=== PATIENT | female | born 1940 | race Caucasian/White ===

== ENCOUNTER 2017-05-08 22:05 | Inpatient (IN) | payer OTHER ==
[~2017-05-08] VITALS: Ht 160 cm; Wt 98.7 kg
[~2017-05-08 22:05] MED LIST: ADVAIR 100/501 DISK IH; CELECOXIB200 MG PO; CYANOCOBAL1000 MCG/2 IM; DICLOFENAC POTA50 MG PO; DICLOFENAC SODI50 MG PO; ELAVIL100 MG PO; FEOSOL325 MG PO; FERROUS SULFAT325 MG PO; FIORINAL 50-321 EACH PO; FLEXERIL10 MG PO; FLONASE ALLERG9.9 ML BOTH NARES; GINKGO BILOBA120 MG PO; HYDROCODON-ACE1 EAC7 PO; LIPITOR40 MG PO; LISINOPRIL20 MG PO; LOVENOX40 MG/0.4 SC; MIRALAX17 GM PO; MIRALAX255 GM PO; NORCO 5/3251 TABLET PO; OXYCONTIN10 MG PO; PRILOSEC20 MG PO; STOOL SOFTENER100 M1 PO; SYNTHROID100 MCG PO; TOPROL XL100 MG PO; VITAMIN D2000 UNIT PO; VITAMIN K100 MCG PO; ZESTORETIC 20-1 EAC1 NG; ZESTORETIC 20-1 EAC1 PO; ZETIA10 MG PO
[2017-05-09 06:21] VITALS: BP 143/76
[2017-05-09 10:08] LABS: HEMATOCRIT 29.6 % (36.0-46.0); MCH 28.2 PG (29.0-34.0); MCHC 31.8 G/DL (30.0-36.0); MCV 88.9 FL (83-99); PLATELET COUNT 216 K/uL (156-360); RBC DIS.WIDTH-CV 14.2 % (11.8-14.6); RBC DIS.WIDTH-SD 45.8 % (39-53); RED BLOOD COUNT 3.33 M/uL (3.80-5.20); WHITE BLOOD COUNT 5.9 K/uL (4.1-10.2)
[2017-05-09 10:19] LABS: HEMOGLOBIN 9.4 G/DL (11.9-15.5)
[2017-05-09 11:45] VITALS: BP 129/59
[2017-05-09 13:09] VITALS: BP 147/65
[2017-05-09 16:44] VITALS: BP 141/65
[2017-05-09 19:57] VITALS: BP 119/56
[2017-05-10 00:19] VITALS: BP 119/56
[2017-05-10 04:42] VITALS: BP 125/79
[2017-05-10 07:56] VITALS: BP 120/58
[2017-05-10 07:56] LABS: HEMATOCRIT 29.8 % (36.0-46.0); HEMOGLOBIN 9.4 G/DL (11.9-15.5); MCV 88.4 FL (83-99)
[2017-05-10 08:17] LABS: CHLORIDE 101 MEQ/L (99-109); CREATININE 0.9 MG/DL (0.6-1.3); GFR ESTIMATE (CALCULATED) > 59 mL/min/; GLUCOSE 113 mg/dL (70-99); POTASSIUM 4.3 MEQ/L (3.7-5.4); SODIUM 136 MEQ/L (136-147); UREA NITROGEN (BUN) 16 mg/dL (9-23)
[2017-05-10] MEDS ORDERED: OXYCONTIN10 MG PO (09:18)
[2017-05-10] MEDS ORDERED: LOVENOX40 MG/0.4 SC (09:18)
[2017-05-10] MEDS ORDERED: ENDOCET 5-3251 EACH PO (09:18)
[2017-05-10 16:21] VITALS: BP 159/56
[2017-05-11 00:36] VITALS: BP 164/77
[2017-05-11 07:43] LABS: HEMATOCRIT 28.7 % (36.0-46.0); HEMOGLOBIN 9.3 G/DL (11.9-15.5); MCV 87.2 FL (83-99)
[2017-05-11] MEDS ORDERED: PROTONIX40 MG PO (17:33)
[2017-05-11] MEDS ORDERED: SENNA-S TABLET1 EACH PO (17:34)
[2017-05-11] MEDS ORDERED: NOVOLOG 10100 UNITS/ SC (17:35)
[2017-05-11] MEDS ORDERED: PERCOCET 10/1 TABLET PO (17:36)
[2017-05-11] MEDS ORDERED: PERCOCET 5/31 TABLET PO (17:37)
[2017-05-11] MEDS ORDERED: ZOFRAN4 MG/2 ML IV (17:38)
[2017-05-11] MEDS ORDERED: SALONPAS-HOT1 EACH TP (17:40)
== END 2017-05-11 17:06 | disposition home or self-care (01) | DRG 470 ==
LOC: ENRESERV 22:05 → 2SOUTH 05-09 05:23 → ENRESERV 05-09 08:55 → 2SOUTH 05-09 10:16 → 3EAST 05-09 10:48 → 2SOUTH 05-09 13:24 → 3EAST 05-11 17:06
PROVIDERS: Orthopaedic Surgery
PROC: 0SRD0J9 Replacement of Left Knee Joint with Synthetic Substitute, Cemented, Open Approach (ICD-10-PCS; principal; 2017-05-09)
DX: M17.12 Unilateral primary osteoarthritis, left knee (principal); I10 Essential (primary) hypertension; E11.9 Type 2 diabetes mellitus without complications; E78.00 Pure hypercholesterolemia, unspecified; K21.9 Gastro-esophageal reflux disease without esophagitis; Z90.710 Acquired absence of both cervix and uterus; Z85.828 Personal history of other malignant neoplasm of skin; Z96.651 Presence of right artificial knee joint; Z80.3 Family history of malignant neoplasm of breast
CPT/HCPCS: 71275; 73560; 80048; 82948; 85014; 85018; 85027; 94799; 97530 GO; C1713; J0131; J0330; J0690; J1100; J1170; J1650; J1885; J2250; J2405; J2795; J7030; J7050

== ENCOUNTER 2017-05-11 14:18 | Inpatient (IN) | payer OTHER ==
[~2017-05-11] VITALS: Ht 160 cm; Wt 90.3 kg
[~2017-05-11 14:18] MED LIST changes: +ENDOCET 5-3251 EACH PO
[2017-05-11] MEDS ORDERED: PROTONIX40 MG PO (17:33)
[2017-05-11] MEDS ORDERED: SENNA-S TABLET1 EACH PO (17:34)
[2017-05-11] MEDS ORDERED: NOVOLOG 10100 UNITS/ SC (17:35)
[2017-05-11] MEDS ORDERED: PERCOCET 10/1 TABLET PO (17:36)
[2017-05-11] MEDS ORDERED: PERCOCET 5/31 TABLET PO (17:37)
[2017-05-11] MEDS ORDERED: ZOFRAN4 MG/2 ML IV (17:38)
[2017-05-11] MEDS ORDERED: SALONPAS-HOT1 EACH TP (17:40)
[2017-05-11 17:42] VITALS: BP 114/56
[2017-05-12 00:29] VITALS: BP 117/58
[2017-05-12 06:28] VITALS: BP 128/58
[2017-05-12 08:33] LABS: HEMATOCRIT 27.1 % (36.0-46.0); HEMOGLOBIN 8.7 G/DL (11.9-15.5); MCH 27.9 PG (29.0-34.0); MCHC 32.1 G/DL (30.0-36.0); MCV 86.9 FL (83-99); PLATELET COUNT 227 K/uL (156-360); RBC DIS.WIDTH-CV 13.7 % (11.8-14.6); RBC DIS.WIDTH-SD 43.8 % (39-53); RED BLOOD COUNT 3.12 M/uL (3.80-5.20)
[2017-05-12 08:54] LABS: ALKALINE PHOSPHATASE 57 IU/L (3-129); ALT (GPT) 5 IU/L (3-49); AST (GOT) 9 IU/L (2-34); CHLORIDE 96 MEQ/L (99-109); CREATININE 0.9 MG/DL (0.6-1.3); GFR ESTIMATE (CALCULATED) > 59 mL/min/; GLUCOSE 111 mg/dL (70-99); POTASSIUM 3.8 MEQ/L (3.7-5.4); SODIUM 135 MEQ/L (136-147); TOTAL BILIRUBIN 0.4 MG/DL (0.0-1.0); UREA NITROGEN (BUN) 15 mg/dL (9-23)
[2017-05-12 15:38] VITALS: BP 109/53
[2017-05-13 05:16] VITALS: BP 115/55
[2017-05-13 07:27] VITALS: BP 108/57
[2017-05-13 15:33] VITALS: BP 118/59
[2017-05-14 15:41] VITALS: BP 120/50
[2017-05-15 05:40] VITALS: BP 123/58
[2017-05-15 15:24] VITALS: BP 129/64
[2017-05-16 05:55] VITALS: BP 165/76
[2017-05-16] MEDS ORDERED: TRAMADOL HCL50 MG PO (12:03)
[2017-05-16 13:32] LABS: BASOPHIL (%) 0.6 % (0-1); EOSINOPHIL (%) 1.8 % (0-5); EOSINOPHIL COUNT 0.1 K/uL (0-0.3); HEMATOCRIT 26.7 % (36.0-46.0); HEMOGLOBIN 8.9 G/DL (11.9-15.5); IMMATURE GRANULOCYTE (%) 0.1 % (0.0-0.7); LYMPHOCYTE (%) 19.6 % (15-42); LYMPHOCYTE COUNT 1.3 K/uL (1.0-2.8); MCHC 33.3 G/DL (30.0-36.0); MONOCYTE (%) 10.1 % (3-12); MONOCYTE COUNT 0.7 K/uL (0-0.8); NEUTROPHIL (%) 67.8 % (45-76); NEUTROPHIL COUNT 4.6 K/uL (1.8-6.4); NRBC (%) 0.9 /100 WBC (0-0); PLATELET COUNT 295 K/uL (156-360); RBC DIS.WIDTH-CV 13.7 % (11.8-14.6); RED BLOOD COUNT 3.07 M/uL (3.80-5.20); WHITE BLOOD COUNT 6.8 K/uL (4.1-10.2)
[2017-05-16 14:04] LABS: CHLORIDE 94 MEQ/L (99-109); CREATININE 1.1 MG/DL (0.6-1.3); GFR ESTIMATE (CALCULATED) 51 mL/min/; GLUCOSE 110 mg/dL (70-99); POTASSIUM 4.5 MEQ/L (3.7-5.4); SODIUM 133 MEQ/L (136-147)
[2017-05-16 14:05] LABS: UREA NITROGEN (BUN) 23 mg/dL (9-23)
== END 2017-05-16 14:55 | DRG 559 ==
LOC: 3WEST 14:18
PROVIDERS: Physical Medicine & Rehabilitation Pain Medicine; Psychiatry & Neurology Neurology
PROC: F07M0ZZ Range of Motion and Joint Mobility Treatment of Musculoskeletal System - Whole Body (ICD-10-PCS; principal; 2017-05-11)
DX: Z47.1 Aftercare following joint replacement surgery (principal); G93.40 Encephalopathy, unspecified; R26.2 Difficulty in walking, not elsewhere classified; D62 Acute posthemorrhagic anemia; E11.9 Type 2 diabetes mellitus without complications; K21.9 Gastro-esophageal reflux disease without esophagitis; Z96.653 Presence of artificial knee joint, bilateral; E03.9 Hypothyroidism, unspecified; M47.814 Spondylosis without myelopathy or radiculopathy, thoracic region; K80.20 Calculus of gallbladder without cholecystitis without obstruction; I10 Essential (primary) hypertension; G43.909 Migraine, unspecified, not intractable, without status migrainosus; Z85.828 Personal history of other malignant neoplasm of skin; E78.00 Pure hypercholesterolemia, unspecified; E87.1 Hypo-osmolality and hyponatremia; Z87.440 Personal history of urinary (tract) infections; Z90.710 Acquired absence of both cervix and uterus
CPT/HCPCS: 80048; 80053; 82948; 85025; 85027; 94640; 94640 76; 94799; 97110 GO; 97530 GP; J1650; J1815